=== PATIENT | female | born 1955 | race Hispanic/Latino ===

== ENCOUNTER → 2022-04-14 | Outpatient (CLI) | payer OTHER ==
[~2022-04-14] MED LIST: ASPI-1005 PO; ATOR40TA69 PO; CHOL500051 PO; CLOP75TA14 PO; ERGOCALCIFEROL; FERR325T29 PO; FLUC100T PO; FLUO40CA49 PO; FOLI1TAB15 PO; GLIP-162 PO; INSLAN SQ; ISOS30TA92 PO; LEVO5TAB13 PO; LISI10TA24 PO; LORA1TAB3 PO; MELO15TA12 PO; MERO1VIA23 IV; METO50TA18 PO; NITR0.4T50 SL; ONDA4TAB10 PO; OXYB-66 PO; PANT40TA54 PO; REG INSULIN; RIVA2.5T PO; TYL2 PO
== END | disposition home or self-care (01) ==
LOC: OIH 10:00
PROVIDERS: ATTEND Internal Medicine Cardiovascular Disease
DX: I25.10 Atherosclerotic heart disease of native coronary artery without angina pectoris (principal); R07.9 Chest pain, unspecified; R06.09 Other forms of dyspnea
CPT/HCPCS: 93306

== ENCOUNTER 2022-04-24 11:49 | Inpatient (IN) | payer OTHER ==
[~2022-04-24] VITALS: Ht 157.5 cm; Wt 73.9 kg
[~2022-04-24 11:49] MED LIST changes: -ERGOCALCIFEROL; -FLUC100T PO; -INSLAN SQ; -ISOS30TA92 PO; -MERO1VIA23 IV; -ONDA4TAB10 PO; -OXYB-66 PO; -REG INSULIN; -RIVA2.5T PO
[2022-04-24] MEDS: LACTATED RINGERS 1000ML 1,000 ML IV SCH ×2 (12:59→20:52)
[2022-04-24] MEDS: PANTOPRAZOLE 40 MG TAB DR PO SCH (12:59)
[2022-04-24] MEDS: ZOSYN 3.375GM +NS 50ML IV SCH ×2 (12:59→20:52)
[2022-04-24] MEDS ORDERED: CLONIDINE HCL 0.1 MG TABLET PO PRN (13:00)
[2022-04-24] MEDS ORDERED: DOCUSATE SODIUM 100 MG CAP PO PRN (13:00)
[2022-04-24] MEDS ORDERED: ACETAMINOPHEN 650 MG SUPPOSITORY RC PRN (13:00)
[2022-04-24] MEDS ORDERED: ONDANSETRON 4MG INJ IVP PRN (13:00)
[2022-04-24 13:06] LABS: CREATININE 0.8 mg/dL (0.5-1.5); POTASSIUM 3.7 mmol/L (3.5-5.1)
[2022-04-24 13:09] LABS: APPEARANCE,URINE CLEAR (CLEAR); BILIRUBIN,URINE NEGATIVE (NEGATIVE); COLOR,URINE LIGHT-YELLOW (YELLOW); GLUCOSE, URINE (UA) NEGATIVE (NEGATIVE); KETONES,URINE NEGATIVE (NEGATIVE); LEUKOCYTE ESTERASE ,URINE NEGATIVE Leu/uL (NEGATIVE); NITRATE,URINE 2+ (NEGATIVE); OCCULT BLOOD,URINE NEGATIVE (NEGATIVE); PROTEIN,URINE NEGATIVE (NEGATIVE); UROBILINOGEN,URINE 0.2 mg/dL (0.2-1.0)
[2022-04-24 13:09] LABS: BASOPHILS % (AUTO) 0.5 % (0.0-5.0); EOSINOPHILS % (AUTO) 1.1 % (0.0-8.0); HEMATOCRIT 33.6 % (36-48); LYMPHOCYTES % (AUTO) 25.1 % (21.0-51.0); MEAN CORPUSCULAR HEMOGLOBIN 25.8 pg (27.0-33.0); MEAN CORPUSCULAR HGB CONC 31.8 g/dL (32.0-36.0); MONOCYTES % (AUTO) 6.3 % (3.0-13.0); NEUTROPHILS % (AUTO) 66.7 % (40.0-77.0); PLATELET COUNT (AUTO) 300 K/uL (130-400); RED BLOOD CELL COUNT(AUTO) 4.15 MIL/uL (4.00-5.50); RED CELL DISTRIBUTION WIDTH 14.4 % (11.0-15.5); WHITE BLOOD COUNT (AUTO) 9.4 K/uL (4.8-10.8)
[2022-04-24 13:17] LABS: ALBUMIN 3.5 g/dL (3.5-5.0); TOTAL PROTEIN, SERUM 7.1 g/dL (6.0-8.3)
[2022-04-24 13:24] LABS: BACTERIA,URINE MOD /HPF (None Seen); MUCUS,URINE RARE LPF (None Seen); RBC,URINE 0-1 /HPF (0-1); SQUAMOUS EPITHELIAL CELL,UR RARE /HPF (0-2)
[2022-04-24 14:27] LABS: INR 0.94 (0.85-1.15); PROTHROMBIN TIME 10.3 SEC (9.6-11.6)
[2022-04-24 14:28] LABS: PARTIAL THROMBOPLASTIN TIME 27.2 SEC (26.3-35.5)
[2022-04-24 17:21] VITALS: BP 140/101
[2022-04-24] MEDS ORDERED: ERGOCALCIFEROL (19:09)
[2022-04-24] MEDS ORDERED: OXYB-66 PO (19:09)
[2022-04-24] MEDS ORDERED: RIVA2.5T PO (19:09)
[2022-04-24] MEDS ORDERED: ISOS30TA92 PO (19:09)
[2022-04-24 20:00] VITALS: BP 160/66
[2022-04-24] MEDS ORDERED: NITROGLYCERIN 0.4 MG SL TAB SL PRN (20:30)
[2022-04-24] MEDS: INSULIN HUMULIN R 100 UNIT/ML 3ML SQ SCH (20:49)
[2022-04-24] MEDS: METOPROLOL TARTRATE 50 MG TAB PO SCH (20:52)
[2022-04-24] MEDS: ATORVASTATIN 40 MG TABLET PO SCH (20:52)
[2022-04-24] MEDS: OXYBUTYNIN 5 MG TAB.SR.24H PO SCH (20:52)
[2022-04-24] MEDS: LISINOPRIL 10 MG TABLET PO SCH (20:52)
[2022-04-24] MEDS: ACETAMINOPHEN 325 MG TAB PO PRN (20:53)
[2022-04-25] VITALS: BP 150/70
[2022-04-25 04:00] VITALS: BP 155/79
[2022-04-25 05:24] LABS: BASOPHILS % (AUTO) 0.4 % (0.0-5.0); HEMATOCRIT 32.3 % (36-48); MEAN CORPUSCULAR HEMOGLOBIN 25.9 pg (27.0-33.0); MEAN CORPUSCULAR HGB CONC 31.6 g/dL (32.0-36.0); MONOCYTES % (AUTO) 6.4 % (3.0-13.0); NEUTROPHILS % (AUTO) 60.8 % (40.0-77.0); PLATELET COUNT (AUTO) 281 K/uL (130-400); RED BLOOD CELL COUNT(AUTO) 3.94 MIL/uL (4.00-5.50); RED CELL DISTRIBUTION WIDTH 14.3 % (11.0-15.5); WHITE BLOOD COUNT (AUTO) 8.3 K/uL (4.8-10.8)
[2022-04-25 05:37] LABS: INR 0.94 (0.85-1.15); PROTHROMBIN TIME 10.3 SEC (9.6-11.6)
[2022-04-25 05:38] LABS: PARTIAL THROMBOPLASTIN TIME 26.8 SEC (26.3-35.5)
[2022-04-25] MEDS: INSULIN HUMULIN R 100 UNIT/ML 3ML SQ SCH ×4 (05:39→22:36)
[2022-04-25 05:43] LABS: MAGNESIUM 1.5 mg/dL (1.80-2.40); PHOSPHORUS 4.5 mg/dL (2.5-4.9); POTASSIUM 4.7 mmol/L (3.5-5.1)
[2022-04-25] MEDS: LACTATED RINGERS 1000ML 1,000 ML IV SCH ×2 (05:44→13:08)
[2022-04-25] MEDS: ZOSYN 3.375GM +NS 50ML IV SCH (05:44)
[2022-04-25 08:00] VITALS: BP 176/82
[2022-04-25] MEDS ORDERED: ENOXAPARIN SODIUM 40 MG/0.4 ML SYRINGE SQ SCH (09:00)
[2022-04-25] MEDS: ISOSORBIDE MONO 30MG SR TAB PO SCH (09:26)
[2022-04-25] MEDS: FLUOXETINE HCL 20 MG CAPSULE PO SCH (09:26)
[2022-04-25] MEDS: PANTOPRAZOLE 40 MG TAB DR PO SCH (09:26)
[2022-04-25] MEDS: OXYBUTYNIN 5 MG TAB.SR.24H PO SCH ×2 (09:26→22:36)
[2022-04-25] MEDS: METOPROLOL TARTRATE 50 MG TAB PO SCH ×2 (09:27→22:32)
[2022-04-25] MEDS: MEROPENEM 1 GM VIAL IVP SCH ×2 (10:49→22:32)
[2022-04-25 11:37] VITALS: BP 151/74
[2022-04-25 16:00] VITALS: BP 126/61
[2022-04-25] MEDS: ACETAMINOPHEN 325 MG TAB PO PRN ×2 (17:48→22:34)
[2022-04-25 20:00] VITALS: BP 154/80
[2022-04-25] MEDS: LISINOPRIL 10 MG TABLET PO SCH (22:33)
[2022-04-25] MEDS: ATORVASTATIN 40 MG TABLET PO SCH (22:33)
[2022-04-26] VITALS: BP 174/86
[2022-04-26 04:00] VITALS: BP 143/67
[2022-04-26] MEDS: PANTOPRAZOLE 40 MG TAB DR PO SCH (06:50)
[2022-04-26] MEDS: INSULIN HUMULIN R 100 UNIT/ML 3ML SQ SCH ×2 (06:51→11:30)
[2022-04-26] MEDS: ACETAMINOPHEN 325 MG TAB PO PRN ×2 (06:53→18:10)
[2022-04-26 08:00] VITALS: BP 161/76
[2022-04-26] MEDS ORDERED: RIVAROXABAN 2.5 MG TABLET PO SCH (09:00)
[2022-04-26] MEDS ORDERED: KETOROLAC 15MG/ML VIAL (15MG/ML) IM SCH (10:00)
[2022-04-26] MEDS: ISOSORBIDE MONO 30MG SR TAB PO SCH (10:03)
[2022-04-26] MEDS: OXYBUTYNIN 5 MG TAB.SR.24H PO SCH (10:03)
[2022-04-26] MEDS: METOPROLOL TARTRATE 50 MG TAB PO SCH (10:03)
[2022-04-26] MEDS: FLUOXETINE HCL 20 MG CAPSULE PO SCH (10:04)
[2022-04-26] MEDS: MEROPENEM 1 GM VIAL IVP SCH (10:05)
[2022-04-26 12:00] VITALS: BP 145/75
[2022-04-26 16:00] VITALS: BP 151/74
[2022-04-28] MEDS ORDERED: ERGOCALCIFEROL (VITAMIN D2) 50,000 UNIT CAPSULE PO SCH (09:00)
== END 2022-04-26 18:15 | DRG 690 ==
LOC: EDH 11:49 → DIRECT 12:28 → 3BH 16:22
PROVIDERS: ADMIT Internal Medicine Critical Care Medicine; ATTEND Internal Medicine Critical Care Medicine
DX: N39.0 Urinary tract infection, site not specified (principal); I16.1 Hypertensive emergency; E11.65 Type 2 diabetes mellitus with hyperglycemia; N20.9 Urinary calculus, unspecified; D64.9 Anemia, unspecified; E55.9 Vitamin D deficiency, unspecified; E78.2 Mixed hyperlipidemia; F31.70 Bipolar disorder, currently in remission, most recent episode unspecified; I10 Essential (primary) hypertension; I25.10 Atherosclerotic heart disease of native coronary artery without angina pectoris; Z82.0 Family history of epilepsy and other diseases of the nervous system; Z82.3 Family history of stroke; Z87.442 Personal history of urinary calculi; Z83.3 Family history of diabetes mellitus; Z90.710 Acquired absence of both cervix and uterus; Z95.1 Presence of aortocoronary bypass graft
CPT/HCPCS: 36415; 70450; 74176; 80048; 80053; 81001; 82948; 83735; 84100; 85025; 85610; 85730; 87040; 87077; 87088; 87186; C1894; G0378; J1885; J2185; J2543; J7120

== ENCOUNTER 2022-08-08 05:50 | Day surgery (SDC) | payer OTHER ==
[2022-08-07 09:46] LABS: HEMATOCRIT 36.6 % (36-48); MEAN CORPUSCULAR HEMOGLOBIN 25.2 pg (27.0-33.0); MEAN CORPUSCULAR HGB CONC 30.6 g/dL (32.0-36.0); MEAN CORPUSCULAR VOLUME 82.2 fL (79-99); PLATELET COUNT (AUTO) 350 K/uL (130-400); RED BLOOD CELL COUNT(AUTO) 4.45 MIL/uL (4.00-5.50); RED CELL DISTRIBUTION WIDTH 14.6 % (11.0-15.5); WHITE BLOOD COUNT (AUTO) 8.3 K/uL (4.8-10.8)
[2022-08-07 09:59] LABS: ALBUMIN 3.7 g/dL (3.5-5.0); CREATININE 0.9 mg/dL (0.5-1.5); POTASSIUM 4.6 mmol/L (3.5-5.1); TOTAL PROTEIN, SERUM 7.6 g/dL (6.0-8.3)
[2022-08-07 10:02] LABS: INR 0.93 (0.85-1.15); PROTHROMBIN TIME 10.2 SEC (9.6-11.6)
[2022-08-07 10:04] LABS: PARTIAL THROMBOPLASTIN TIME 26.2 SEC (26.3-35.5)
[2022-08-07 10:08] LABS: APPEARANCE,URINE CLEAR (CLEAR); BILIRUBIN,URINE NEGATIVE (NEGATIVE); COLOR,URINE COLORLESS (YELLOW); GLUCOSE, URINE (UA) >=1000 mg/dL (NEGATIVE); KETONES,URINE NEGATIVE (NEGATIVE); LEUKOCYTE ESTERASE ,URINE NEGATIVE Leu/uL (NEGATIVE); NITRATE,URINE NEGATIVE (NEGATIVE); OCCULT BLOOD,URINE NEGATIVE (NEGATIVE); PH,URINE 7.5 (5.0-8.0); PROTEIN,URINE NEGATIVE (NEGATIVE); UROBILINOGEN,URINE 0.2 mg/dL (0.2-1.0)
[2022-08-07 10:10] LABS: BACTERIA,URINE RARE /HPF (None Seen); MUCUS,URINE RARE LPF (None Seen); SQUAMOUS EPITHELIAL CELL,UR RARE /HPF (0-2)
[2022-08-07 13:56] VITALS: BP 161/79
[~2022-08-08] VITALS: Ht 157.5 cm; Wt 69.6 kg
[2022-08-08] VITALS (18 sets, daily range): BP systolic 97–176; BP diastolic 47–90
[~2022-08-08 05:50] MED LIST changes: -ASPI-1005 PO; +ASPI-1443 PO; -ATOR40TA69 PO; -CHOL500051 PO; -CLOP75TA14 PO; +EMPA10TA PO; +FAMO20TA8 PO; -FERR325T29 PO; +FLUO20CA30 PO; -FLUO40CA49 PO; -FOLI1TAB15 PO; -GLIP-162 PO; +ISOS30TA92 PO; -LEVO5TAB13 PO; -LORA1TAB3 PO; -MELO15TA12 PO; +MIRA50TA PO; -NITR0.4T50 SL; +PIP/TAZ ZOSYN 3.375G 3.375 GM VIAL IVPB SCH; +RIVA2.5T PO; +ROSU40TA21 PO; -TYL2 PO; +VITAMIN D2 PO
[2022-08-08] MEDS ORDERED: ZOSYN 3.375GM+NS 50ML 50 ML ONE (05:53)
[2022-08-08] MEDS ORDERED: 0.9%NACL 1000ML 1,000 ML IV ONE (05:53)
[2022-08-08] MEDS ORDERED: GLYCOPYRROLATE 1 MG/5 ML SYRINGE ONE (07:14)
[2022-08-08] MEDS ORDERED: MIDAZOLAM HCL 1 MG/ML 2ML VIAL ONE (07:14)
[2022-08-08] MEDS ORDERED: PROPOFOL 10 MG/ML 20ML VIAL IV ONE (07:14)
[2022-08-08] MEDS ORDERED: NEOSTIGMINE 5MG/5ML SYR IV ONE (07:14)
[2022-08-08] MEDS ORDERED: ONDANSETRON 4MG INJ ONE (07:14)
[2022-08-08] MEDS ORDERED: SUCCINYLCHOLINE 200MG/10ML SYR ONE (07:14)
[2022-08-08] MEDS ORDERED: DEXAMETHASONE SOD PHOSPHATE 10MG/ML 1ML VIAL ONE (07:14)
[2022-08-08] MEDS ORDERED: ROCURONIUM 10MG/1ML SYR 10 MG/ML ML ONE (07:14)
[2022-08-08] MEDS ORDERED: LIDOCAINE PF 100MG/5ML (2%) SYRINGE 5ML ONE (07:14)
[2022-08-08] MEDS ORDERED: FENTANYL CITRATE PF 50 MCG/1 ML 2ML VIAL ONE (07:15)
[2022-08-08] MEDS ORDERED: ZOSYN 3.375GM +NS 50ML IV ONE (07:20)
[2022-08-08] MEDS ORDERED: PHENYLEPHRINE HCL 10 MG/ML 1ML VIAL IV ONE (07:24)
== END 2022-08-08 10:20 | disposition home or self-care (01) ==
LOC: DAH 05:50
PROVIDERS: ATTEND Urology
DX: N20.0 Calculus of kidney (principal); Z20.822 Contact with and (suspected) exposure to COVID-19; I10 Essential (primary) hypertension; E11.9 Type 2 diabetes mellitus without complications; F41.9 Anxiety disorder, unspecified; F32.A Depression, unspecified; Z79.82 Long term (current) use of aspirin; Z79.899 Other long term (current) drug therapy; Z79.01 Long term (current) use of anticoagulants; Z95.1 Presence of aortocoronary bypass graft
CPT/HCPCS: 80053; 85027; 85610; 85730; 87088; 87426; 81001; 36415; 74018; 71046; 76100; 93005; 50590; 82948 ×3; A6260; A4663; J7030 ×2; J3010; J0330; J3490; J1100; J2710; J2001; J2250; J2704; J2405; J2543; J2370; A4215; A4223; A4222; A4221

== ENCOUNTER → 2022-09-08 | Outpatient (CLI) | payer OTHER ==
[~2022-09-08] MED LIST changes: -PIP/TAZ ZOSYN 3.375G 3.375 GM VIAL IVPB SCH
== END | disposition home or self-care (01) ==
LOC: RAH 11:02
PROVIDERS: ATTEND Urology
DX: N20.0 Calculus of kidney (principal)
CPT/HCPCS: 74018; 76100

== ENCOUNTER 2022-12-05 20:15 | Emergency (ER) | payer OTHER ==
[~2022-12-05] VITALS: Ht 157.5 cm; Wt 70.8 kg
[2022-12-05 21:51] LABS: BASOPHILS % (AUTO) 0.4 % (0.0-5.0); EOSINOPHILS % (AUTO) 2.6 % (0.0-8.0); HEMATOCRIT 34.2 % (36-48); LYMPHOCYTES % (AUTO) 32.9 % (21.0-51.0); MEAN CORPUSCULAR HEMOGLOBIN 25.7 pg (27.0-33.0); MEAN CORPUSCULAR HGB CONC 30.7 g/dL (32.0-36.0); MEAN CORPUSCULAR VOLUME 83.6 fL (79-99); NEUTROPHILS % (AUTO) 55.9 % (40.0-77.0); PLATELET COUNT (AUTO) 257 K/uL (130-400); RED BLOOD CELL COUNT(AUTO) 4.09 MIL/uL (4.00-5.50); RED CELL DISTRIBUTION WIDTH 16.8 % (11.0-15.5); WHITE BLOOD COUNT (AUTO) 8.5 K/uL (4.8-10.8)
[2022-12-05] MEDS ORDERED: MORPHINE 2 MG SYG IVP ONE (22:00)
[2022-12-05 22:08] LABS: INR 0.93 (0.85-1.15); PROTHROMBIN TIME 9.9 SEC (9.6-11.6)
[2022-12-05 22:09] LABS: PARTIAL THROMBOPLASTIN TIME 27.9 SEC (26.3-35.5)
[2022-12-05 22:12] LABS: CARBON DIOXIDE 29 mmol/L (21-32); CHLORIDE 102 mmol/L (101-111); CREATININE 0.9 mg/dL (0.5-1.5); GLOMERULAR FILTR. RATE CALC 69 mL/min (>90); GLUCOSE,RANDOM 152 mg/dL (70-105); POTASSIUM 4.4 mmol/L (3.5-5.1); SODIUM SERUM 138 mmol/L (136-145); UREA NITROGEN, BLOOD 13 mg/dL (7-18)
[2022-12-05 22:17] LABS: ALANINE AMINOTRANSFERASE 29 U/L (12-78); ALBUMIN 3.7 g/dL (3.5-5.0); ASPARTATE AMINOTRANSFERASE 15 U/L (10-37); CRP QUANTITATIVE < 2.00 mg/L (0.00-9.0); TOTAL PROTEIN, SERUM 6.9 g/dL (6.0-8.3)
[2022-12-05] MEDS ORDERED: TRAM50TA4 PO (23:55)
[2022-12-06] MEDS ORDERED: TRAMADOL /APAP 37.5MG/325MG TAB PO ONE
[2022-12-06 00:17] VITALS: BP 124/78
== END 2022-12-06 00:19 | disposition home or self-care (01) ==
LOC: EDH 20:15
DX: S50.02XA Contusion of left elbow, initial encounter (principal); E11.9 Type 2 diabetes mellitus without complications; E78.00 Pure hypercholesterolemia, unspecified; I10 Essential (primary) hypertension; Z79.01 Long term (current) use of anticoagulants; Z79.82 Long term (current) use of aspirin; Z79.84 Long term (current) use of oral hypoglycemic drugs; Z79.899 Other long term (current) drug therapy; Z90.49 Acquired absence of other specified parts of digestive tract; Z95.1 Presence of aortocoronary bypass graft; Z90.710 Acquired absence of both cervix and uterus; X58.XXXA Exposure to other specified factors, initial encounter; Y93.01 Activity, walking, marching and hiking; Y92.89 Other specified places as the place of occurrence of the external cause; Y99.8 Other external cause status
CPT/HCPCS: 36415; 73080; 80053; 85025; 85610; 85730; 86140; 96374

== ENCOUNTER 2022-12-15 11:25 | Emergency (ER) | payer OTHER ==
[~2022-12-15] VITALS: Ht 157.5 cm; Wt 71.2 kg
[~2022-12-15 11:25] MED LIST changes: +TRAM50TA4 PO
[2022-12-15 11:33] VITALS: BP 102/51
[2022-12-15 11:50] LABS: BASOPHILS % (AUTO) 0.6 % (0.0-5.0); EOSINOPHILS % (AUTO) 1.6 % (0.0-8.0); HEMATOCRIT 33.2 % (36-48); LYMPHOCYTES % (AUTO) 21.4 % (21.0-51.0); MEAN CORPUSCULAR HEMOGLOBIN 26.2 pg (27.0-33.0); MEAN CORPUSCULAR HGB CONC 31.6 g/dL (32.0-36.0); MEAN CORPUSCULAR VOLUME 82.8 fL (79-99); MONOCYTES % (AUTO) 7.7 % (3.0-13.0); NEUTROPHILS % (AUTO) 68.4 % (40.0-77.0); PLATELET COUNT (AUTO) 266 K/uL (130-400); RED BLOOD CELL COUNT(AUTO) 4.01 MIL/uL (4.00-5.50); RED CELL DISTRIBUTION WIDTH 16.7 % (11.0-15.5)
[2022-12-15 12:06] LABS: ALANINE AMINOTRANSFERASE 27 U/L (12-78); ALBUMIN 3.2 g/dL (3.5-5.0); ASPARTATE AMINOTRANSFERASE 22 U/L (10-37); CARBON DIOXIDE 24 mmol/L (21-32); CHLORIDE 103 mmol/L (101-111); CREATININE 1.1 mg/dL (0.5-1.5); GLOMERULAR FILTR. RATE CALC 54 mL/min (>90); GLUCOSE,RANDOM 212 mg/dL (70-105); POTASSIUM 4.5 mmol/L (3.5-5.1); SODIUM SERUM 137 mmol/L (136-145); TOTAL PROTEIN, SERUM 6.5 g/dL (6.0-8.3); UREA NITROGEN, BLOOD 25 mg/dL (7-18)
[2022-12-15 12:19] LABS: APPEARANCE,URINE CLOUDY (CLEAR); BILIRUBIN,URINE NEGATIVE (NEGATIVE); COLOR,URINE LIGHT-YELLOW (YELLOW); GLUCOSE, URINE (UA) >=1000 mg/dL (NEGATIVE); KETONES,URINE NEGATIVE (NEGATIVE); LEUKOCYTE ESTERASE ,URINE 500 Leu/uL (NEGATIVE); NITRATE,URINE 2+ (NEGATIVE); OCCULT BLOOD,URINE NEGATIVE (NEGATIVE); PH,URINE 5.5 (5.0-8.0); PROTEIN,URINE 10 mg/dL (NEGATIVE); UROBILINOGEN,URINE 0.2 mg/dL (0.2-1.0)
[2022-12-15 12:38] LABS: BACTERIA,URINE RARE /HPF (None Seen); MUCUS,URINE RARE LPF (None Seen); SQUAMOUS EPITHELIAL CELL,UR RARE /HPF (0-2); WBC,URINE TNTC /HPF (0-1)
== END 2022-12-15 14:28 | disposition home or self-care (01) ==
LOC: EDH 11:25
DX: F41.9 Anxiety disorder, unspecified (principal); I10 Essential (primary) hypertension; E11.9 Type 2 diabetes mellitus without complications; E78.00 Pure hypercholesterolemia, unspecified; K21.9 Gastro-esophageal reflux disease without esophagitis; Z79.82 Long term (current) use of aspirin; Z79.84 Long term (current) use of oral hypoglycemic drugs; Z79.899 Other long term (current) drug therapy; Z90.49 Acquired absence of other specified parts of digestive tract; Z95.1 Presence of aortocoronary bypass graft; Z98.890 Other specified postprocedural states
CPT/HCPCS: 36415; 71045; 80053; 81001; 84484; 85025; 87077; 87088; 87186; 93005

== ENCOUNTER → 2024-08-28 | Outpatient (CLI) | payer OTHER ==
[~2024-08-28] MED LIST changes: +ALEN70TA80 PO; -ASPI-1443 PO; +FERS325 PO; +MECL-302 PO; +OXYB5TAB20 PO; -ROSU40TA21 PO; +ROSU40TA88 PO; -TRAM50TA4 PO
--- NOTE | 2024-09-02 10:29 | HMCIMG ---
Exam Type: MAMMO SCREENING BILATERAL Clinical Information: ROUTINE SCREENING Comparison: March 12, 2023 Technique: Bilateral mammogram with CAD was performed with CC and MLO projections. FINDINGS: Breast parenchyma is heterogeneously dense which lowers the sensitivity of the mammographic examination. No dominant mass or suspicious microcalcification identified. There is no nipple retraction or skin thickening. Benign-appearing calcifications are seen. CAD shows no worrisome regions. IMPRESSION: 1. No mammographic signs of malignancy. 2. Routine follow-up recommended. CATEGORY 2: BENIGN FINDINGS Note: A negative x-ray should not delay biopsy if a dominant or clinically suspicious mass is present, since 8-10% of cancers are not identified by mammography. Dense breasts may obscure an underlying neoplasm.
== END | disposition home or self-care (01) ==
LOC: RAH 09:48
PROVIDERS: ATTEND Internal Medicine
DX: Z12.31 Encounter for screening mammogram for malignant neoplasm of breast (principal)
CPT/HCPCS: 77067

== ENCOUNTER → 2024-11-18 | Outpatient (CLI) | payer OTHER ==
--- NOTE | 2024-11-18 11:57 | HMCIMG ---
BONE DENSITOMETRY: HISTORY: Asymptomatic menopausal state Comparison: None FINDINGS: BMD measured at AP spine L1-L4 is 0.726 g/cm2 with a T-score of -2.9 This patient is considered osteoporotic according to WHO criteria. Fracture risk is high. BMD measured at Left Femoral Neck is 0.661 g/cm2 with a T-score of -1.8 Bone density is between 10 and 25% below young normal. This patient is considered osteopenic. Fracture risk is moderate. BMD measured at Left Femoral Total is 0.822 g/cm2 with a T-score of -1.0 Bone density is between 10 and 25% below young normal. This patient is considered osteopenic. Fracture risk is moderate. IMPRESSION: Osteoporosis. High risk for atraumatic fractures. Treatment and follow-up recommended.
== END | disposition home or self-care (01) ==
LOC: RAH 09:38
PROVIDERS: ATTEND Internal Medicine
DX: M81.0 Age-related osteoporosis without current pathological fracture (principal); Z78.0 Asymptomatic menopausal state
CPT/HCPCS: 77080